=== PATIENT | female | born 1955 | race Caucasian/White ===

== ENCOUNTER 2019-04-21 15:36 | Inpatient (IN) | payer OTHER ==
[~2019-04-21] VITALS: Ht 154.9 cm; Wt 49.9 kg
[2019-04-21 15:39] VITALS: BP 146/77
[2019-04-21] MEDS ORDERED: LEXAPRO 10 MG T10 M1 PO (15:44)
[2019-04-21 16:15] LABS: ABSOLUTE BASOPHILS 0.1 thou/uL (0.0-0.2); ABSOLUTE EOSINOPHILS 0.1 thou/uL (0.0-0.7); ABSOLUTE MONOCYTES 0.7 thou/uL (0.0-1.2); ABSOLUTE NEUTROPHILS 4.1 thou/uL (1.6-8.1); BASOPHILS 1.1 %; EOSINOPHILS 0.9 %; HEMATOCRIT 39.3 % (37.0-47.0); HEMOGLOBIN 13.7 gm/dL (12.0-15.0); LYMPHOCYTES 37.4 %; MCH 31.7 pg (26.0-34.0); MCHC 34.8 g/dL (28.0-37.0); MCV 91.1 fL (80.0-100.0); MONOCYTES 8.4 %; NUCLEATED RBCS 0 /100WBC; PLATELET COUNT* 222 thou/uL (150-400); POLYS 52.2 %; RBC 4.31 mil/uL (4.20-5.00); RDW-CV 13.2 % (10.5-14.5); WBC 7.9 thou/uL (4.0-11.0)
[2019-04-21 16:25] LABS: CREATININE 1.1 mg/dL (0.6-1.3); POTASSIUM 3.6 mmol/L (3.5-5.1)
[2019-04-21] MEDS ORDERED: ZOFRAN ODT4 MG DISSOLVE (16:34)
[2019-04-21] MEDS ORDERED: BENTYL 20 MG TA20 M1 PO (16:34)
[2019-04-21 16:39] LABS: ALBUMIN 3.6 g/dL (3.4-5.0); MAGNESIUM 2.1 mg/dL (1.8-2.4); TOTAL BILIRUBIN 0.2 mg/dL (<0.1-1.0); TOTAL PROTEIN 7.3 g/dL (6.4-8.2)
[2019-04-21 18:06] VITALS: BP 145/79
[2019-04-21] MEDS ORDERED: FISH OIL 1,001000 M3 PO (18:46)
--- NOTE | 2019-04-21 18:49 | NUR ---
PT ADMITTED TO ROOM 206. NO C/O CHEST PAIN DURING ADMISSION. PT REPORTS SOME DIZZINESS WHEN STANDING AND REPORTS THAT SHE FELL ABOUT TWO WEEKS AND WAS DIAGNOSED WITH POST CONCUSSION SYNDROME AND HAS BEEN HAVING SOME DIZZINESS SINCE THEN. TELE SR ON THE MONITOR. NO OTHER CONCERNS AT THIS TIME. CLWR. WCTM.
[2019-04-21 18:54] VITALS: BP 157/76
[2019-04-21 20:00] VITALS: BP 137/67
[2019-04-22] VITALS: BP 92/53
[2019-04-22 00:57] LABS: HEMATOCRIT 38.5 % (37.0-47.0); HEMOGLOBIN 12.9 gm/dL (12.0-15.0); MCH 31.2 pg (26.0-34.0); MCHC 33.6 g/dL (28.0-37.0); MCV 92.9 fL (80.0-100.0); MPV 9.1 fl. (7.2-11.1); RBC 4.14 mil/uL (4.20-5.00); RDW-CV 13.2 % (10.5-14.5); WBC 7.2 thou/uL (4.0-11.0)
[2019-04-22 01:05] LABS: ANION GAP 8 mmol/L (7-16); BUN 22 mg/dL (7-18); CALCIUM 8.8 mg/dL (8.5-10.1); CHLORIDE 106 mmol/L (98-107); CHOLESTEROL 236 mg/dL (<200); CO2 26 mmol/L (21-32); GLUCOSE 108 mg/dL (70-99); HDL CHOLESTEROL 52 mg/dL (>40); LDL CHOLESTEROL 171 mg/dL (<100); SODIUM 140 mmol/L (136-145); TC:HDL 4.5 Ratio (Not establshd); TRIGLYCERIDE 66 mg/dL (<150); VLDL 13 mg/dL (<40)
[2019-04-22 01:12] LABS: SERUM ASSESSMENT Clear
[2019-04-22 04:00] VITALS: BP 81/44
--- NOTE | 2019-04-22 05:04 | NUR ---
ASSUMED PT CARE AT APPROX 1930. PT IS AWAKE AND ORIENTED X4. VSS ON ROOM AIR. PT DENIES CHEST PAIN/DISCOMFORT. 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 PT IS ABLE TO SLEEP MOST OF THE NIGHT. PT IS ADVISED TO HAVE NOTHING BY MOUTH AFTER MIDNIGHT FOR CARDIOLOGY. CALL LIGHT WITHIN REACH. HOURLY ROUNDING DONE FOR PT SAFETY.
--- NOTE | 2019-04-22 07:10 | NUR ---
CHANGE OF SHIFT, BEDSIDE REPORT GIVEN PATIENT SEEN AT BEDSIDE, IN BED RESTING ASSUMED PATIENT CARE
[2019-04-22 08:00] VITALS: BP 124/67
--- NOTE | 2019-04-22 10:24 | EKG ---
[place] [address] ELECTROCARDIOGRAM REPORT Name: MERLIN EUBANKS Room: [address] ADM IN .R.#: [id number] Admission: 04/21/19 Attend Phys: Kelly Baker MD Discharge: Date of : 53 Report #: [id number] THIS REPORT FOR: //name// [facility] ED Test Date: 2019-04-21 Test Time: 15:41:20 Pat Name: MERLIN EUBANKS Department: Room: [facility] Gender: F Rouge Mixer: [place] : 1955 Requested By: Geo Salas Order Number: [id number] MD: Eloy Bush Measurements Intervals [place] Rate: 61 P: 59 VT: 175 QRS: 94 QRSD: 82 T: 69 QT: 409 QTc: 412 Interpretive Statements Sinus rhythm Right axis deviation ST elevation, consider early repolarization No previous ECG available for comparison Electronically Signed On 04-22-2019 10:24:21 CONTROL OFFICER by Eloy Bush [email or web address] <ELECTRONICALLY SIGNED> By: Eloy Bush MD, [facility] 04/22/19 [id number] Eloy Bush MD, FACC /EPI
--- NOTE | 2019-04-22 10:25 | EKG ---
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: : 1955 Requested By: Geo Salas Order Number: [id number] MD: Eloy Bush Measurements Intervals [place] Rate: 60 P: -10 NM: 159 QRS: 76 QRSD: 84 T: 111 QT: 444 QTc: 444 Interpretive Statements Sinus rhythm Borderline low voltage, extremity leads Borderline repolarization abnormality Baseline wander in lead(s) V5 Electronically Signed On 04-22-2019 10:25:03 DRILLER AND REAMER by Eloy Bush [email or web address] <ELECTRONICALLY SIGNED> By: Eloy Bush MD, [facility] 04/22/19 1025 172 27 Eloy Bush MD, [facility] /EPI
--- NOTE | 2019-04-22 10:27 | EKG ---
[place] [address] ELECTROCARDIOGRAM REPORT Name: MERLIN EUBANKS Room: [address] ADM IN .R.#: [id number] Admission: 04/21/19 Attend Phys: Kelly Baker MD Discharge: Date of : 53 Report #: [id number] THIS REPORT FOR: //name// [facility] Test Date: 2019-04-22 Test Time: 09:30:25 Pat Name: MERLIN EUBANKS Department: Room: [address] Gender: F Developmental Behavioral Physician: : 1955 Requested By: Kelly Baker Order Number: [id number] MD: Eloy Bush Measurements Intervals [place] Rate: 64 P: 266 ND: 180 QRS: 94 QRSD: 83 T: 58 QT: 417 QTc: 431 Interpretive Statements Sinus or ectopic atrial rhythm Right axis deviation Minimal ST elevation, inferior leads Electronically Signed On 04-22-2019 10:27:29 DUSTER TENDER by Eloy Bush [email or web address] <ELECTRONICALLY SIGNED> By: Eloy Bush MD, [facility] 04/22/19 1027 929 9 Eloy Bush MD, FACC /EPI
[2019-04-22 12:05] VITALS: BP 124/67
--- NOTE | 2019-04-22 13:11 | NUR ---
PATIENT DISCHARGED TO HOME ALL DISCHARGE INSTRUCTIONS GIVEN IV AND HEART MONITOR REMOVED PERSONAL BELONGINGS RETURNED PATIENT ASSISTED OUT VIA WC TO WAITING CAR
--- NOTE | 2019-04-22 14:43 | 2DMMODE ---
[place] [address] 2 D/M-MODE ECHOCARDIOGRAM Name: CHAMERLIN Room: [address] IN Geo#: [id number] Admission: 04/21/19 Attend Phys: Kelly Baker, Discharge: 04/22/19 Date of : 53 Date of Service: 04/22/19 1443 Report #: [id number] THIS REPORT FOR: //name// APPROVED REPORT Study performed: 04/22/2019 10:17:29 EXAM: Comprehensive 2D, Doppler, and color-flow Echocardiogram Patient Location: In-Patient Room #: [facility] Status: routine BSA: 1.47 HR: 65 bpm BP: 124/67 mmHg Rhythm: NSR Other Information Study Quality: Good Indications Chest Pain 2D Dimensions IVSd: 8.26 (7-11mm) LVOT Diam: 19.28 (18-24mm) LVDd: 37.61 mm PWd: 8.60 (7-11mm) Ascending Ao: 26.13 (22-36mm) LVDs: 16.85 (25-40mm) Aortic Root: 29.32 mm Volumes Left Atrial Volume (Systole) LA ESV Index: 19.80 mL/m2 Aortic Valve AoV Peak Bay.: 1.21 m/s AO Peak Gr.: 5.86 mmHg LVOT Max P.95 mmHg AO Mean Gr.: 3.29 mmHg LVOT Mean P.83 mmHg LVOT Max V: 1.22 m/s AO V2 VTI: 26.72 cm LVOT Mean V: 0.78 m/s FRANCISCO (VTI): 2.90 cm2 LVOT V1 VTI: 26.59 cm Mitral Valve E/A Ratio: 1.35 MV Decel. Time: 163.68 ms MV E Max Bay.: 0.86 m/[place] [address] 2 D/M-MODE ECHOCARDIOGRAM Name: MERLIN EUBANKS Room: [address] IN M.R.#: [id number] Admission: 04/21/19 Attend Phys: Kelly Baker, Discharge: 04/22/19 Date of : 53 Date of Service: 04/22/19 1443 Report #: [id number] MV PHT: 47.47 ms MVA (PHT): 4.63 cm2 TDI E/Lateral E': 6.14 E/Medial E': 7.17 Medial E' Bay.: 0.12 m/s Lateral E' Bay.: 0.14 m/s Pulmonary Valve PV Peak Bay.: 1.00 m/s PV Peak Gr.: 3.97 mmHg Tricuspid Valve RAP Estimate: 5.00 mmHg TR Peak Gr.: 16.76 mmHg RVSP: 21.00 mmHg PA Pressure: 21.00 mmHg Left Ventricle The left ventricle is normal size. There is normal LV segmental wall motion. There is normal left ventricular wall thickness. Left ventricular systolic function is normal. The left ventricular ejection fraction is within the normal range. LVEF is 65-70%. The left ventricular diastolic function is normal. Right Ventricle The right ventricle is normal size. The right ventricular systolic function is normal. Atria The left atrium size is normal. The right atrium size is normal. Aortic Valve Mild aortic valve sclerosis. No aortic regurgitation is present. There is no aortic valvular stenosis. Mitral Valve The mitral valve is normal in structure. Trace mitral regurgitation. No evidence of mitral valve stenosis. Tricuspid Valve The tricuspid valve is normal in structure. Trace tricuspid regurgitation. estimated pa pressure 25 mm Hg Pulmonic Valve The pulmonary valve is normal in structure. There is no pulmonic [place] [address] 2 D/M-MODE ECHOCARDIOGRAM Name: MERLIN EUBANKS Room: [address] IN .R.#: [id number] Admission: 04/21/19 Attend Phys: Kelly Baker, Discharge: 04/22/19 Date of : 53 Date of Service: 04/22/19 1443 Report #: [id number] Great Vessels The aortic root is normal in size. IVC is normal in size and collapses >50% with inspiration. Pericardium There is no pericardial effusion. <Conclusion> Left ventricular systolic function is normal. The left ventricular ejection fraction is within the normal range. <ELECTRONICALLY SIGNED> By: Eloy Bush MD, [facility] 04/22/19 1443 1443 1443 Eloy Bush MD, FACC /INF
--- NOTE | 2019-04-22 16:03 | CON ---
[address] [address] CONSULTATION Name: MERLIN EUBANKS Geo Room: [address] IN M.R.#: [id number] Admission: 04/21/19 Attend Phys: Kelly Baker MD Discharge: 04/22/19 Date of : 53 Report #: [id number] THIS REPORT FOR: //name// CC: Umm Baker DATE OF SERVICE: 04/22/2019 CARDIOLOGY CONSULTATION HISTORY OF PRESENT ILLNESS: The patient is a 63-year-old white female who I was asked to see in the hospital today after she complained of chest pain. The patient has no previous history of heart disease. She notes she was doing well until about 2 weeks ago she tripped on a stone in the parking lot and fell forward. She hit her chin and went to urgent care. She did not require stitches. She did have some upper back and shoulder pain since that time. Yesterday, she was lying in bed and reading. She then felt an aching in her chest went into her back. Denied any radiation to her jaw or arms. There was no associated shortness of breath, diaphoretic, nausea. Her brought her to the Emergency Room where she was admitted. She denied the pain being related to coughing or eating. She stays active, working out on an elliptical every day. Denies previous history of chest pain, shortness of breath, palpitations, syncope, or peripheral edema. PAST MEDICAL HISTORY: Significant for tonsillectomy. She has a history of hyperlipidemia, but could not tolerate Zocor in the past. No history of hypertension, diabetes. MEDICATIONS: Include Lexapro. FAMILY HISTORY: Her mother has high cholesterol. Father had bypass surgery. SOCIAL HISTORY: She is . She and her live here in [place]. 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 No smoking. Rarely drinks alcohol. REVIEW OF SYSTEMS: She has had no history of stroke, asthma, peptic ulcer disease, liver disease, kidney disease, cancer, psychiatric illness, chronic skin condition. PHYSICAL EXAMINATION: GENERAL: Revealed a middle-aged female, appeared in no distress. VITAL SIGNS: She had a blood pressure 140/70, pulse 60. She is afebrile. HEENT: She was anicteric. Conjunctivae are pink. Mucous membranes moist. NECK: Veins nondistended. No carotid bruits. Neck supple. CHEST: [place] [address] CONSULTATION Name: MERLIN EUBANKS Room: [address]#: [id number] Admission: 04/21/19 Attend Phys: Kelly Baker MD Discharge: 04/22/19 Date of : 53 Report #: [id number] CARDIOVASCULAR: Regular rate and rhythm. ABDOMEN: Soft. EXTREMITIES: Had no edema. Dorsalis pedis pulse 1+ bilaterally. SKIN: Cool and dry. NEUROLOGIC: Nonfocal. Her ECG on admission showed a sinus rhythm. There was no significant ST or T-wave change noted. Her workup in the Emergency Room yesterday, portable chest x-ray showed no acute abnormality. Her workup in the Emergency Room yesterday, sodium 140, creatinine 1.0. Troponins all 0.06. Cholesterol 236, LDL is 171, triglyceride 66, HDL 52. White blood cell count 7.2, hemoglobin 12.9. IMPRESSION AND RECOMMENDATIONS: 1. Chest pain. Atypical for angina. No evidence of acute myocardial infarction. Suspect noncardiac. The patient did have a coronary calcium score 2 years ago that showed no significant coronary artery disease. 2. Familial hyperlipidemia. The patient cannot tolerate statin drug. I would try Zetia and red yeast rice tablets twice a day. 3. Recent fall with chronic back pain. <ELECTRONICALLY SIGNED> By: Eloy Bush MD, FACC 04/22/19 1603 0921 1003Dlea Bush MD, FACC /nt
== END 2019-04-22 13:20 | disposition home or self-care (01) | DRG 313 ==
LOC: M.ERS 15:36 → M.TBA-ER 17:47 → M.2W 17:47
PROVIDERS: Emergency Medicine Emergency Medical Services; ADMIT Internal Medicine
DX: R07.89 Other chest pain (principal); E78.5 Hyperlipidemia, unspecified; G89.29 Other chronic pain; M54.9 Dorsalgia, unspecified; Z82.49 Family history of ischemic heart disease and other diseases of the circulatory system